=== PATIENT | male | born 1970 | race American Indian/Alaskan Native ===

== ENCOUNTER 2017-10-03 11:37 | Emergency (ER) | payer SELFPAY ==
[2017-10-03 12:54] VITALS: BP 169/97
--- NOTE | 2017-10-03 13:07 | Emergency Department Report ---
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 Due to findings the following was ordered: blood work Patient to be seen by provider in Main ED ED Disposition for MSE Condition: Stable
[2017-10-03 13:37] LABS: Hematocrit 43.8 % (35.5-45.6); Hemoglobin 14.3 gm/dl (11.8-15.2); Mean Corpuscular HGB Conc 33 % (32-34); Mean Corpuscular Hemoglobin 26 pg (28-32); Mean Corpuscular Volume 80 fl (84-94); Platelet Count 210 K/mm3 (140-440); Red Blood Count 5.46 M/mm3 (3.65-5.03); Red Cell Distribution Width 16.6 % (13.2-15.2)
[2017-10-03 13:46] LABS: Anion Gap 16 mmol/L; BUN/Creatinine Ratio 10; Blood Urea Nitrogen 11 mg/dL (9-20); Calcium 8.7 mg/dL (8.4-10.2); Carbon Dioxide 28 mmol/L (22-30); Chloride 98.9 mmol/L (98-107); Glucose 83 mg/dL (75-100); Sodium 139 mmol/L (137-145)
== END 2017-10-03 23:00 | disposition left against medical advice (07) ==
LOC: ED 11:37
DX: R51 Headache (principal); Z53.21 Procedure and treatment not carried out due to patient leaving prior to being seen by health care provider
CPT/HCPCS: 36415; 80048; 85027